=== PATIENT | female | born 1995 | race Two or more races ===

== ENCOUNTER 2024-12-01 12:25 | Outpatient (CLI) | payer OTHER ==
[~2024-12-01] VITALS: Ht 162.6 cm; Wt 154.9 kg
[2024-12-01 12:58] VITALS: BP 128/57
[2024-12-01 14:07] VITALS: BP 132/64
[2024-12-01 15:11] LABS: PLATELET COUNT, AUTOMATED 204 10^3/uL (150-450)
[2024-12-01 15:13] VITALS: BP 135/64
[2024-12-01 15:40] LABS: ALT/SGPT 20 U/L (7.0-40); AST/SGOT 23 U/L (<34); CALCIUM LEVEL 8.6 MG/DL (8.5-10.1); CARBON DIOXIDE LEVEL 26 MMOL/L (20-31); CHLORIDE LEVEL 99 MMOL/L (98-107); CREATININE FOR GFR 0.57 MG/DL (0.55-1.30); GLOMERULAR FILTRATION RATE > 90.0 (>60); POTASSIUM SERUM 4.4 MMOL/L (3.5-5.1); SODIUM LEVEL 134 MMOL/L (136-145)
[2024-12-01 15:48] LABS: ESTIMATED AVERAGE GLUCOSE 217.0 MG/DL (60-110)
[2024-12-01 15:56] LABS: APPEARANCE, URINE CLEAR (CLEAR); BACTERIA, URINE AUTO NEGATIVE (NEGATIVE); BILIRUBIN, URINE AUTO NEGATIVE (NEGATIVE); BLOOD, URINE BLOOD NEGATIVE (NEGATIVE); GLUCOSE, URINE (UA) AUTO 3+ mg/dL (NEGATIVE); KETONE, URINE AUTO NEGATIVE (NEGATIVE); LEUKOCYTE ESTERASE, URINE AUTO NEGATIVE (NEGATIVE); NITRITE, URINE AUTO NEGATIVE (NEGATIVE); PROTEIN, URINE AUTO NEGATIVE (NEGATIVE); RBC, URINE AUTO 0 /HPF (0-3); SPECIFIC GRAVITY URINE AUTO 1.029 (1.002-1.035); SQUAMOUS EPITHELIAL CELL UR AU 4 /HPF (0-6); UROBILINOGEN, URINE AUTO 0.2 mg/dL (0.0-2.0); WBC, URINE AUTO 0 /HPF (0-3)
[2024-12-01] MEDS ORDERED: [UNRECOGNIZED DRUG - CODE] XX (16:04)
[2024-12-01 16:12] VITALS: BP 132/75
== END 2024-12-01 16:31 | disposition home or self-care (01) ==
LOC: M LDO 12:25
PROVIDERS: ATTEND Specialist
DX: O26.892 Other specified pregnancy related conditions, second trimester (principal); O24.112 Pre-existing type 2 diabetes mellitus, in pregnancy, second trimester; O34.219 Maternal care for unspecified type scar from previous cesarean delivery; R10.2 Pelvic and perineal pain; Z3A.23 23 weeks gestation of pregnancy
CPT/HCPCS: 36415; 76815; 80053; 81001; 83036; 85027; G0463

== ENCOUNTER 2025-01-19 22:27 | Outpatient (CLI) | payer OTHER ==
[~2025-01-19] VITALS: Ht 162.6 cm; Wt 159.0 kg
[~2025-01-19 22:27] MED LIST: [UNRECOGNIZED DRUG - CODE] XX
[2025-01-19 22:51] VITALS: BP 104/44
[2025-01-19] MEDS ORDERED: ECOT81TA5 PO (23:17)
[2025-01-19] MEDS ORDERED: INSUN SC (23:17)
[2025-01-19] MEDS ORDERED: HUMU500S2 SC (23:17)
[2025-01-19] MEDS ORDERED: HOME MED LIST COMPLETE! XX SCH (23:20)
[2025-01-20 00:33] LABS: APPEARANCE, URINE HAZY (CLEAR); BACTERIA, URINE AUTO NEGATIVE (NEGATIVE); BILIRUBIN, URINE AUTO NEGATIVE (NEGATIVE); BLOOD, URINE BLOOD NEGATIVE (NEGATIVE); GLUCOSE, URINE (UA) AUTO 1+ mg/dL (NEGATIVE); KETONE, URINE AUTO TRACE mg/dL (NEGATIVE); LEUKOCYTE ESTERASE, URINE AUTO NEGATIVE (NEGATIVE); MUCUS, URINE SMALL (NEGATIVE); NITRITE, URINE AUTO NEGATIVE (NEGATIVE); PROTEIN, URINE AUTO 1+ mg/dL (NEGATIVE); RBC, URINE AUTO 1 /HPF (0-3); SPECIFIC GRAVITY URINE AUTO 1.028 (1.002-1.035); SQUAMOUS EPITHELIAL CELL UR AU 5 /HPF (0-6); UROBILINOGEN, URINE AUTO 0.2 mg/dL (0.0-2.0); WBC, URINE AUTO 0 /HPF (0-3)
[2025-01-20 00:40] LABS: PLATELET COUNT, AUTOMATED 196 10^3/uL (150-450)
[2025-01-20 00:48] LABS: ESTIMATED AVERAGE GLUCOSE 206.0 MG/DL (60-110)
[2025-01-20 01:04] LABS: ALT/SGPT 26 U/L (7.0-40); AST/SGOT 21 U/L (<34); CALCIUM LEVEL 9.2 MG/DL (8.5-10.1); CARBON DIOXIDE LEVEL 25 MMOL/L (20-31); CHLORIDE LEVEL 105 MMOL/L (98-107); CREATININE FOR GFR 0.57 MG/DL (0.55-1.30); GLOMERULAR FILTRATION RATE > 90.0 (>60); POTASSIUM SERUM 4.3 MMOL/L (3.5-5.1); SODIUM LEVEL 138 MMOL/L (136-145)
== END 2025-01-20 01:20 | disposition home or self-care (01) ==
LOC: M LDO 22:27
PROVIDERS: ATTEND Specialist
DX: O47.03 False labor before 37 completed weeks of gestation, third trimester (principal); O24.113 Pre-existing type 2 diabetes mellitus, in pregnancy, third trimester; O99.213 Obesity complicating pregnancy, third trimester; O40.3XX0 Polyhydramnios, third trimester, not applicable or unspecified; Z79.4 Long term (current) use of insulin; E66.9 Obesity, unspecified; Z3A.30 30 weeks gestation of pregnancy
CPT/HCPCS: 36415; 59025; 80053; 81001; 83036; 85027; G0463

== ENCOUNTER → 2025-02-12 | Outpatient (CLI) | payer OTHER ==
[~2025-02-12] MED LIST changes: +ASPI81TA26; +ECOT81TA5 PO; +HUMU1INJ2; +HUMU500S SC; +HUMU500S2 SC; +INSUN SC; +MULTTAB20 PO
== END ==
LOC: M WHC 09:55
PROVIDERS: ATTEND Advanced Practice Midwife
DX: O24.113 Pre-existing type 2 diabetes mellitus, in pregnancy, third trimester (principal); O99.213 Obesity complicating pregnancy, third trimester; E66.01 Morbid (severe) obesity due to excess calories; Z3A.30 30 weeks gestation of pregnancy

== ENCOUNTER → 2025-02-17 | Outpatient (CLI) | payer OTHER | LOC: M RAD 12:09 | PROVIDERS: ATTEND Obstetrics & Gynecology | DX: O28.8 Other abnormal findings on antenatal screening of mother (principal); Z3A.00 Weeks of gestation of pregnancy not specified ==

== ENCOUNTER 2025-02-20 23:15 | Outpatient (CLI) | payer OTHER ==
[~2025-02-20] VITALS: Ht 162.6 cm; Wt 160.0 kg
[2025-02-20 23:31] VITALS: BP 115/55
== END 2025-02-21 00:42 | disposition home or self-care (01) ==
LOC: M LDO 23:15
PROVIDERS: ATTEND Obstetrics & Gynecology
DX: O26.893 Other specified pregnancy related conditions, third trimester (principal); O24.113 Pre-existing type 2 diabetes mellitus, in pregnancy, third trimester; R10.9 Unspecified abdominal pain; Z3A.35 35 weeks gestation of pregnancy; Y92.9 Unspecified place or not applicable; Y93.9 Activity, unspecified; Y99.9 Unspecified external cause status
CPT/HCPCS: 59025; G0463

== ENCOUNTER 2025-02-23 17:23 | Inpatient (IN) | payer OTHER ==
[~2025-02-23] VITALS: Ht 162.6 cm; Wt 159.0 kg
[2025-02-23] MEDS ORDERED: ACET500P3 PO (18:01)
[2025-02-23] MEDS ORDERED: HOME MED LIST COMPLETE! XX SCH (19:05)
[2025-02-23] MEDS: BETAMETHASONE SOLUSPAN 6 MG/ML 5 ML VIAL IM ONE (19:55)
[2025-02-23] MEDS: BENZONATATE 100 MG CAPSULE PO ONE (19:55)
[2025-02-23] MEDS ORDERED: LR 1,000 ML IV SCH (21:30)
[2025-02-23 21:52] LABS: BASO # 0.0 10^3/uL (0.0-0.2); BASO % 0.1 % (0.0-1.0); EOS # 0.1 10^3/uL (0.0-0.5); EOS % 1.3 % (0.0-3.0); LYMPH # 1.5 10^3/uL (1.5-5.0); LYMPH % 17.8 % (24.0-44.0); MONO # 1.0 10^3/uL (0.0-0.8); MONO % 12.0 % (2.0-8.0); NEUTROPHILS # 5.8 10^3/uL (1.5-8.5); NEUTROPHILS % 67.8 % (36.0-66.0); PLATELET COUNT, AUTOMATED 174 10^3/uL (150-450)
[2025-02-23 22:22] LABS: ALT/SGPT 34 U/L (7.0-40); AST/SGOT 36 U/L (<34); CALCIUM LEVEL 8.6 MG/DL (8.5-10.1); CARBON DIOXIDE LEVEL 22 MMOL/L (20-31); CHLORIDE LEVEL 104 MMOL/L (98-107); CREATININE FOR GFR 0.62 MG/DL (0.55-1.30); GLOMERULAR FILTRATION RATE > 90.0 (>60); POTASSIUM SERUM 3.7 MMOL/L (3.5-5.1); SODIUM LEVEL 137 MMOL/L (136-145)
[2025-02-24] VITALS (7 sets, daily range): BP systolic 117–140; BP diastolic 55–77; TEMP 97.2; O2SAT 90–97
[2025-02-24] MEDS ORDERED: LR 1,000 ML IV SCH (05:35)
[2025-02-24] MEDS ORDERED: INSULIN IV RATE CHANGE DOCUMENTATION ML/HR XX SCH (05:40)
[2025-02-24] MEDS: NS (Normal Saline) 0.9% 1,000 ML IV SCH (05:40)
[2025-02-24] MEDS ORDERED: D5W/0.9% SODIUM CHLORIDE 1,000 ML IV SCH (05:55)
[2025-02-24] MEDS: INSULIN REGULAR IN 0.9 % NACL 100 UNIT in IV 1 EA IV SCH (06:12)
[2025-02-24 06:26] LABS: PLATELET COUNT, AUTOMATED 181 10^3/uL (150-450)
[2025-02-24 07:00] LABS: HEPATITIS B SURFACE ANTIBODY POSITIVE (POSITIVE)
[2025-02-24 07:26] LABS: HIV 1&2 SCREEN NEGATIVE (NEGATIVE)
[2025-02-24] MEDS ORDERED: OXYTOCIN 30UNITS IN 0.9% NaCl 500ML IV BAG As Ordered ONE (07:26)
[2025-02-24] MEDS ORDERED: MORPHINE PRES-FREE INJ 10 MG/10 ML VIAL As Ordered ONE (07:26)
[2025-02-24] MEDS ORDERED: PHENYLephrine 500MCG 5ML (100MCG/ML) SYRINGE As Ordered ONE (07:26)
[2025-02-24 07:33] LABS: HEPATITIS C VIRUS ABY INDEX 0.48 INDEX (<0.8)
[2025-02-24] MEDS: BICITRA 30 ML SOLN UDC PO ONE (07:39)
[2025-02-24] MEDS: ceFAZolin SODIUM 3 GM in DEXTROSE 5% (D5W) MINI-BAG PLU 100 ML IV ONE (07:40)
[2025-02-24] MEDS ORDERED: dexAMETHasone 4 MG/ML 1 ML VIAL As Ordered ONE (08:23)
[2025-02-24] MEDS ORDERED: ONDANSETRON 4MG 2ML VIAL As Ordered ONE (08:23)
[2025-02-24] MEDS ORDERED: KETOROLAC 30 MG/ML 1 ML VIAL As Ordered ONE (08:40)
[2025-02-24 08:48] LABS: CORD GAS ABE A -6.1; CORD GAS ABE V -4.2; CORD GAS HCO3 A 23.5 MMOL/L; CORD GAS HCO3 V 22.0 MMOL/L; CORD GAS O2 SAT A 22.1 %; CORD GAS O2 SAT V 71.9 %; CORD GAS PCO2 A 65.5 mmHg; CORD GAS PCO2 V 44.3 mmHg; CORD GAS PH A 7.172 UNITS; CORD GAS PH V 7.313 UNITS; CORD GAS PO2 A 15.1 mmHg; CORD GAS PO2 V 32.0 mmHg; CORD GAS SBC A 17.9 MMOL/L; CORD GAS SBC V 20.4 MMOL/L; CORD GAS TCO2 A 25.5 MMOL/L; CORD GAS TCO2 V 23.3 MMOL/L
[2025-02-24] MEDS ORDERED: RHOGAM 300MCG (1500IU) INJ IM SCH (09:00)
[2025-02-24] MEDS ORDERED: SIMETHICONE 80MG CHEW TAB PO PRN (09:00)
[2025-02-24] MEDS: OXYTOCIN DRIP 30 UNITS in IV 1 EA IV PRN (10:25)
[2025-02-24] MEDS: TRANEXAMIC ACID INJection 1,000 MG in NS 100 ML IV PRN (10:36)
[2025-02-24] MEDS ORDERED: HumuLIN R (REGULAR) INSULIN (NovoLIN R) **100 U/ML** PER UNIT SC SCH ×2 (12:00→12:53)
[2025-02-24] MEDS: LR 1,000 ML IV SCH (12:30)
[2025-02-24] MEDS: PRENATAL VITAMINS CHEWABLE TABLET PO SCH (12:30)
[2025-02-24] MEDS ORDERED: GLUCAGON INJ 1 MG VIAL SC PRN (13:00)
[2025-02-24] MEDS ORDERED: GLUCOSE 4 GM CHEW PO PRN (13:00)
[2025-02-24] MEDS ORDERED: DEXTROSE 50% 50 ML SYRINGE IV PRN (13:00)
[2025-02-24] MEDS: INSULIN LISPRO (NovoLOG) PER UNIT SC SCH (13:22)
[2025-02-24] MEDS: ONDANSETRON 4MG 2ML VIAL IV PRN (14:08)
[2025-02-24] MEDS: LACTATED RINGER'S 1000 ML IV STA (14:43)
[2025-02-24] MEDS: KETOROLAC 30 MG/ML 1 ML VIAL IV SCH (16:43)
[2025-02-24] MEDS ORDERED: HumuLIN N INSULIN (NovoLIN N) PER UNIT SC SCH (17:30)
[2025-02-24] MEDS: LR 1,000 ML IV ONE (20:40)
[2025-02-25] MEDS: PERCOCET 5MG/325MG TAB PO PRN ×2 (00:43→13:45)
[2025-02-25 02:00] VITALS: BP 115/54; O2SAT 99
[2025-02-25 05:49] VITALS: BP 125/60; O2SAT 98
[2025-02-25 07:44] LABS: PLATELET COUNT, AUTOMATED 163 10^3/uL (150-450)
[2025-02-25] MEDS: ENOXAPARIN 40 MG/0.4 ML SYRINGE (J1650 PER 10MG) SC SCH (08:52)
[2025-02-25 10:00] VITALS: BP 119/56; O2SAT 99
[2025-02-25] MEDS: IBUPROFEN 800 MG TAB PO SCH (12:52)
[2025-02-25 15:00] VITALS: BP 118/60; O2SAT 99
[2025-02-25] MEDS ORDERED: IBUP80TA PO (15:52)
[2025-02-25] MEDS ORDERED: COLA100C5 PO (15:52)
[2025-02-25] MEDS ORDERED: OXYC1TAB23 PO (15:52)
[2025-02-25] MEDS: HumuLIN N INSULIN (NovoLIN N) PER UNIT SC SCH (17:28)
[2025-02-25 18:00] VITALS: BP 120/56; O2SAT 98
[2025-02-25] MEDS: DOCUSATE SODIUM 100 MG CAPSULE PO PRN (19:56)
[2025-02-25 22:00] VITALS: BP 137/68; O2SAT 97
[2025-02-26 02:00] VITALS: BP 136/70; O2SAT 97
[2025-02-26 05:00] VITALS: BP 133/61; O2SAT 98
[2025-02-26] MEDS: MEASLES,MUMPS,RUBELLA VACCINE INJ (MMR-II) SC.IMMUN ONE (08:06)
[2025-02-26] MEDS ORDERED: Insulin Human Nph SC (12:45)
== END 2025-02-26 13:40 | disposition home or self-care (01) | DRG 771 ==
LOC: M LDO 17:23 → M LDI 02-24 05:31 → M OBS 02-24 11:11
PROVIDERS: ADMIT Specialist; ATTEND Specialist
PROC: 10D00Z1 Extraction of Products of Conception, Low, Open Approach (ICD-10-PCS; principal; 2025-02-24 07:30)
DX: O34.211 Maternal care for low transverse scar from previous cesarean delivery (principal); O24.12 Pre-existing type 2 diabetes mellitus, in childbirth; O60.14X0 Preterm labor third trimester with preterm delivery third trimester, not applicable or unspecified; O40.3XX0 Polyhydramnios, third trimester, not applicable or unspecified; Z3A.35 35 weeks gestation of pregnancy; Z79.4 Long term (current) use of insulin; Z37.0 Single live birth; E11.65 Type 2 diabetes mellitus with hyperglycemia; Z79.82 Long term (current) use of aspirin

== ENCOUNTER → 2025-03-05 | Outpatient (CLI) | payer OTHER ==
[~2025-03-05] MED LIST changes: +ACET500P3 PO; +COLA100C5 PO; +IBUP80TA PO; +Insulin Human Nph SC; +OXYC1TAB23 PO
== END ==
LOC: M CARPUL 12:17
PROVIDERS: ATTEND Specialist
DX: I51.7 Cardiomegaly (principal)